=== PATIENT | female | born 1990 | race Caucasian/White ===

== ENCOUNTER 2016-09-03 15:09 | Emergency (ER) | payer OTHER ==
--- NOTE | 2016-09-03 15:27 | PDOC ---
Rapid Medical Evaluation Time Seen by Provider: 09/03/16 15:24 Medical Evaluation: Allergies Allergy/AdvReac Type Severity Reaction Status Date / Time No Known Allergies Allergy Verified 11/04/15 16:58 09/03/16 15:25 I have performed a brief in-person evaluation of this patient The patient presents with chief complaint of STD testing, boyfriend with positive Chlamydia, No symptoms Pertinent physical findings: normal I have ordered the following: STD panal The patient will proceed to [facility] for further evaluation.
[2016-09-03 15:29] VITALS: BP 135/75; PULSE 110; TEMP 97.9; BMI 28.1
[2016-09-03] MEDS ORDERED: AZITHROMYCIN 1 GM PACKET PO ONE (18:45)
[2016-09-03] MEDS ORDERED: AZITHROMYCIN 1 GM PACKET ONE (18:49)
[2016-09-03 20:10] LABS: HIV 1 AGp24 NEGATIVE
[2016-09-03 20:11] LABS: HIV 1 & 2 AB PRELIMINARY POSITIVE
--- NOTE | 2016-09-03 20:40 | PDOC ---
History of Present Illness - General Chief Complaint: Non EmpBld/Body Flud Exposure Stated Complaint: STD TESTING Time Seen by Provider: 09/03/16 15:24 History Source: Patient Exam Limitations: No Limitations - History of Present Illness Initial Comments: 09/03/16 20:35 CC told by boyfriend he had positive; pt wants testing Associated Symptoms: denies: denies symptoms, chest pain, cough, nausea/vomiting Aspirin Received prior to arrival: No: no aspirin today Past History - Past Medical History Allergies/Adverse Reactions: Allergies Allergy/AdvReac Type Severity Reaction Status Date / Time No Known Allergies Allergy Verified 09/03/16 15:26 Home Medications: Ambulatory Orders Fluoxetine HCl [Prozac] 10 mg PO DAILY 12/29/13 Oxycodone HCl/Acetaminophen [Percocet 5-325 mg Tablet -] 1 - 2 tab PO Q4H PRN # 20 tablet 12/30/13 - Immunization History Immunization Up to Date: Yes - Psycho/Social/Smoking Cessation Hx Anxiety: No Suicidal Ideation: No Smoking History: Never smoked Have you smoked in the past 12 months: No Information on smoking cessation initiated: No Hx Alcohol Use: No Drug/Substance Use Hx: No Substance Use Type: None Review of Systems - Review of Systems Constitutional: No: Symptoms Reported HEENTM: No: Symptoms Reported Respiratory: No: Symptoms reported : No: Burning, Dysuria, Discharge, Hematuria Musculoskeletal: No: Symptoms Reported *Physical Exam - Vital Signs Last Vital Signs Temp Pulse Resp BP Pulse Ox 97.9 F 110 H 18 135/75 96 09/03/16 15:26 09/03/16 15:26 09/03/16 15:26 09/03/16 15:26 09/03/16 15:26 - Physical Exam General Appearance: No: Appropriately Dressed HEENT: positive: TMs Normal, Pharynx Normal Respiratory/Chest: positive: Lungs Clear ED Treatment Course - Medications Given in the ED: ED Medications Discontinued Medications Generic Name Dose Route Start Last Admin Trade Name Freq PRN Reason Stop Dose Admin Azithromycin 1 gm 09/03/16 18:45 09/03/16 19:05 Zithromax - PO 09/03/16 18:46 1 gm ONCE ONE Administration Ceftriaxone Sodium 250 mg 09/03/16 18:44 09/03/16 19:04 Rocephin - IM 09/03/16 18:45 250 mg ONCE ONE Administration Medical Decision Making - Medical Decision Making 09/03/16 20:36 pt wo symptoms; std test done and rocephin and zithromax given; Labs states their was positive HIV how ever Dr Vega states lab thinks that there was a machine false positive because a know HIV negative pt also tested postive; and suggests that test be redone post controls fixed; pt told of ?? abn results and will return tomorrow for additional testing; can't wait now *DC/Admit/Observation/Transfer Diagnosis at time of Disposition: Exposure to sexually transmitted disease (STD) - Discharge Dispostion Disposition: HOME Condition at time of disposition: Stable Admit: No - Referrals - Patient Instructions Additional Instructions: PLEASe return in am for repeat testing; IT IS VERY IMPORTANT - Post Discharge Activity Work/School Note: Back to Work
[2016-09-03 21:06] LABS: HIV 1 AGp24 NEGATIVE
[2016-09-03 21:07] LABS: HIV 1 & 2 AB PRELIMINARY POSITIVE
--- NOTE | 2016-09-04 18:37 | PDOC ---
*Physical Exam - Vital Signs Last Vital Signs Temp Pulse Resp BP Pulse Ox 97.9 F 110 H 18 135/75 96 09/03/16 15:26 09/03/16 15:26 09/03/16 15:26 09/03/16 15:26 09/03/16 15:26 ED Treatment Course - Medications Given in the ED: ED Medications Discontinued Medications Generic Name Dose Route Start Last Admin Trade Name Jeff PRN Reason Stop Dose Admin Azithromycin 1 gm 09/03/16 18:45 09/03/16 19:05 Zithromax - PO 09/03/16 18:46 1 gm ONCE ONE Administration Ceftriaxone Sodium 250 mg 09/03/16 18:44 09/03/16 19:04 Rocephin - IM 09/03/16 18:45 250 mg ONCE ONE Administration Progress Note - Progress Note Progress Note: Pt as noted left before comfirmation of HIV postive results were established on 09/03 ; pt promised to return to ED today for reevaluation of results; pt has not return; mobile called several times no answer and no voice mail offered; Spoke with Dr Esquivel about case; reviewed with asst nurse embedded software manager [employer] about case also; will try to make contact with pt later tonight. *DC/Admit/Observation/Transfer Diagnosis at time of Disposition: STD exposure - Discharge Dispostion Disposition: HOME Condition at time of disposition: Stable - Referrals Referrals: Scottie Toscano MD [Primary Care Provider] - - Patient Instructions Additional Instructions: PLEASe return in am for repeat testing; IT IS VERY IMPORTANT - Post Discharge Activity Work/School Note: Back to Work
--- NOTE | 2016-09-08 15:08 | PDOC ---
Patient Follow-up (Call Back) - Post ED Follow - Up Condition at time of discharge: Stable Disposition at time of original discharge: HOME - Disposition Additional Instructions/Notes: Given preliminarily positive HIV testing, appointment was confirmed for the patient with the [facility] for 09/14/16 with Nica Dunn. Called cell number on file to inform the patient - again, no response and message was left to call back or return to the hospital.
== END 2016-09-03 21:10 | disposition home or self-care (01) ==
LOC: JERFT 15:09
DX: Z20.2 Contact with and (suspected) exposure to infections with a predominantly sexual mode of transmission (principal)
CPT/HCPCS: 36415; 87389; 87491; 87591; 99281-25

== ENCOUNTER → 2016-11-09 | Emergency (ER) | payer OTHER ==
[~2016-11-09] MED LIST: IBUPROFEN 600 MG TABLET (FP) PO ONE; SODIUM CHLORIDE 1,000 ML IV ONE
[2016-11-09 12:34] VITALS: PULSE 70; TEMP 98; BMI 28.1
--- NOTE | 2016-11-09 12:49 | PDOC ---
History of Present Illness - General History Source: Patient Exam Limitations: No Limitations - History of Present Illness Initial Comments: 11/09/16 14:14 The patient is a 26 year old female, 14 weeks , with a significant past medical history of HIV and GERD, who presents to the ER s/p syncope earlier today. Patient states she was walking around at [employer] today and had a sudden onset of sweats. As patient proceeded to unbutton her shirt, patient lost consciousness and fell sideways. Friend states the patients eyes rolled back and she started to convulse on the floor with blind stare. As per friend, the episode lasted for about 30 seconds. On interview, patient states she feels better. Patient says this is her first without any complications. Denies headache, head or neck trauma Denies nausea, vomiting Denies difficulty walking Denies shooting arm pain Denies anemia <Eunice Jordan - Last Filed: 11/09/16 15:32> <Tristin Castro - Last Filed: 11/09/16 16:16> - General Stated Complaint: Syncope/Near Syncope Time Seen by Provider: 11/09/16 12:47 Past History <Eunice Jrodan - Last Filed: 11/09/16 15:32> - Immunization History Immunization Up to Date: Yes - Psycho/Social/Smoking Cessation Hx Anxiety: No Suicidal Ideation: No Smoking History: Former smoker Have you smoked in the past 12 months: Yes Information on smoking cessation initiated: No Hx Alcohol Use: No Drug/Substance Use Hx: No Substance Use Type: None <Tristin Castro - Last Filed: 11/09/16 16:16> - Past Medical History Allergies/Adverse Reactions: Allergies Allergy/AdvReac Type Severity Reaction Status Date / Time No Known Allergies Allergy Verified 09/03/16 15:26 Home Medications: Ambulatory Orders Fluoxetine HCl [Prozac] 10 mg PO DAILY 12/29/13 Review of Systems - Review of Systems Comments:: 11/09/16 14:14 CONSTITUTIONAL: Absent: fever, no chills, no fatigue EYES: Absent: visual changes ENT: Absent: ear pain, no sore throat CARDIOVASCULAR: Absent: chest pain, no palpitations RESPIRATORY: Absent: cough, no SOB GI: Absent: abdominal pain, no nausea, no vomiting, no constipation, no diarrhea GENITOURINARY: Absent: dysuria, no frequency, no hematuria MUSCULOSKELETAL: Absent: back pain, no arthralgia, no myalgia SKIN: Absent: rash NEURO: Absent: headache <Eunice Jordan - Last Filed: 11/09/16 15:32> - Review of Systems Constitutional: No: Chills, Fever HEENTM: No: Nose Congestion, Throat Swelling Respiratory: No: Cough, Shortness of Breath Cardiac (ROS): Yes: Syncope. No: Chest Pain, Edema, Palpitations ABD/GI: No: Diarrhea, Vomiting : No: Dysuria, Frequency All Other Systems: Reviewed and Negative <Tristin Castro - Last Filed: 11/09/16 16:16> *Physical Exam - Vital Signs Last Vital Signs Temp Pulse Resp BP Pulse Ox 98.0 F 70 18 112/70 98 11/09/16 12:30 11/09/16 12:30 11/09/16 12:30 11/09/16 13:21 11/09/16 12:30 - Physical Exam Comments: 11/09/16 14:15 General: Patient is alert and in no acute distress. Speech is clear and appropriate. Head: Atraumatic and nontender. HEENT: Pupils are equal round and reactive to light, extraocular movements are intact. The tympanic membranes are clear, no hemotympanum. No facial deformity/ tenderness, no septal hematoma. The oropharynx is clear. Neck: The trachea is midline, there is no stridor. There is no midline cervical spine tenderness, full range of motion of neck. Chest: Nontender, no ecchymosis or abrasions. Heart: S1-S2, regular rate and rhythm. No murmurs. Lungs: Clear to auscultation bilaterally. Symmetric chest rise. Abdomen: Unable to palpate uterus. Soft/nontender/nondistended. Bowel sounds are normal. There is no abdominal or flank ecchymosis. Back/Pelvis: There is no midline spine tenderness or step-off. Pelvis is stable and nontender. Extremities: Superficial ecchymosis over right knee. Extension/flexion good. There is no extremity deformity or joint swelling. No focal bony tenderness throughout. 2+ distal pulses throughout. Neuro: Alert and oriented x3. Cranial nerves II through XII are intact. 5 out of 5 motor strength x4 extremities. [id number] is intact. No pronator drift. Gait is stable. Skin: No abrasions/hematomas/lacerations. Psych: Affect is appropriate. <Eunice Jordan - Last Filed: 11/09/16 15:32> - Vital Signs Last Vital Signs Temp Pulse Resp BP Pulse Ox 98.0 F 70 18 110/70 98 11/09/16 12:30 11/09/16 12:30 11/09/16 12:30 11/09/16 12:30 11/09/16 12:30 <Tristin Castro - Last Filed: 11/09/16 16:16> Heart Score/ECG Review #1 ECG reviewed & interpreted by me at: 13:00 General ECG Interpretation: Sinus Rhythm, Normal Rate (92), Normal Intervals ( qtc 440, qrs 82), No acute ischemic changes <Tristin Castro - Last Filed: 11/09/16 16:16> ED Treatment Course - LABORATORY CBC & Chemistry Diagram: 11/09/16 13:15 11/09/16 13:15 - ADDITIONAL ORDERS Additional order review: Laboratory Results 11/09/16 13:15 Sodium 139 Potassium 4.2 Chloride 105 Carbon Dioxide 23 Anion Gap 11 BUN 6 L D Creatinine 0.5 L D Creat Clearance w eGFR > 60 Random Glucose 80 Calcium 8.1 L Total Bilirubin 0.3 D AST 16 ALT 17 D Alkaline Phosphatase 43 L D Total Protein 6.4 Albumin 3.8 11/09/16 13:15 RBC 4.12 MCV 87.1 MCHC 34.3 RDW 13.4 MPV 8.2 Neutrophils % 77.8 Lymphocytes % 17.6 Monocytes % 4.1 Eosinophils % 0.3 Basophils % 0.2 - RADIOLOGY Radiograph Interpretation: 11/09/16 15:32 US impression reported by Dr. Cory Garrido: Single live intrauterine gestation of 14 weeks 1 day gestational age. A heart rate of 136 BPM was calculated. The placenta is anterior in location. An adequate amount of amniotic fluid is identified. The fetus is in a vertex presentation at the present time. - Medications Given in the ED: ED Medications Discontinued Medications Generic Name Dose Route Start Last Admin Trade Name Freq PRN Reason Stop Dose Admin Sodium Chloride 1,000 mls @ 1,000 mls/hr 11/09/16 12:57 11/09/16 13:21 Normal Saline - IV 11/09/16 13:56 1,000 mls/hr ONCE ONE Administration <Eunice Jordan - Last Filed: 11/09/16 15:32> - LABORATORY CBC & Chemistry Diagram: 11/09/16 13:15 11/09/16 13:15 <Tristin Castro - Last Filed: 11/09/16 16:16> Medical Decision Making - Medical Decision Making 11/09/16 13:04 A portion of this note was documented by scribe services under my direction. I have reviewed the details of the note, within reason, and agree with the documentation with the following case summary and management plan written by me. 26-year-old female with well-controlled HIV, almost 14 weeks' gestation otherwise uncomplicated presents with syncopal episode. Patient was in her usual state of normal health, skipped breakfast this morning and while shopping developed lightheadedness and warmth, lost consciousness and fell to the ground before she could find a seat. Per friend/bystander, patient did strike her head and side, returned to baseline within about 30 seconds. Some tremor but no convulsions. pt without complaints of headache or vision change or speech change, no chest pain or vaginal bleeding or pelvic cramping. No recent dehydration or infectious complaints. Vital signs normal, blood pressure 110/70 Exam is atraumatic except for superficial skin bruise to the right shoulder and right knee Head is atraumatic and neurologically intact abd benign, uterus not palpable 26-year-old female with well-controlled HIV, approaching second trimester of otherwise uncomplicated presents with syncopal episode that seems most consistent with orthostatic episode, positive fall/injury but exam is within normal limits. Can avoid any x-ray and CT imaging given low suspicion for TBI or fracture Will check pelvic ultrasound to confirm status of Check basic labs including CBC IV fluid hydration, EKG Reassess and dispo accordingly 11/09/16 16:12 Labs wnl. BP remained wnl. Looks and feels well, sono showed IUP with normal heart rate and placenta. No cramping/bleeding, no headache/vomiting. Tolerated PO, ambulating steadily, has no new complaints of pain/swelling or motor/sensory deficit. Family at bedside, pt feels comfortable going home. Understands return criteria. Concussion precautions discussed. <Tristin Castro - Last Filed: 11/09/16 16:16> *DC/Admit/Observation/Transfer - Attestations Scribe Attestion: 11/09/16 14:16 Documentation prepared by Eunice Jordan, acting as medical laboratory scientist for Tristin Castro MD. <Eunice Jordan - Last Filed: 11/09/16 15:32> <Tristin Castro - Last Filed: 11/09/16 16:16> Diagnosis at time of Disposition: Syncope and collapse, HIV (human immunodeficiency virus infection) Qualifiers: Weeks of gestation: 13 weeks Qualified Code(s): Z3A.13 - 13 weeks gestation of - Discharge Dispostion Disposition: HOME Condition at time of disposition: Improved - Referrals Referrals: Scottie Toscano MD [Primary Care Provider] - - Patient Instructions Printed Discharge Instructions: DI for Syncope in Adults (Fainting) Additional Instructions: Activity as tolerated. Stay hydrated. Tylenol 1000 mg every 8 hours as needed for pain. Blood tests and an ultrasound showed no acute abnormalities today. The passing out was likely due to an orthostatic or vasovagal episode, which can be more common in . Continue your medications as previously prescribed by your physician. You should follow up with your primary doctor and CLINICAL DATA ANALYST as soon as possible regarding today's emergency department visit. Return to the emergency department for any new or concerning symptoms, particularly severe headache or confusion or vomiting (these can be symptoms of concussion), severe pain or swelling, cramping or bleeding.
[2016-11-09 13:22] VITALS: BP 112/70
[2016-11-09 13:30] LABS: BASOPHIL 0.2 % (0-2.0); EOSINOPHIL 0.3 % (0-4.5); MCH 29.8 pg (25.7-33.7); MCHC 34.3 g/dl (32.0-36.0); MEAN CELL VOLUME 87.1 fl (80-96); MEAN PLT VOLUME 8.2 fl (7.5-11.1); NEUTROPHILS 77.8 % (42.8-82.8); PLATELET COUNT 168 K/MM3 (134-434); RDW 13.4 % (11.6-15.6); WHITE BLOOD COUNT 11.5 K/mm3 (4.0-10.0)
[2016-11-09 13:43] LABS: ALBUMIN 3.8 g/dl (3.4-5.0); ANION GAP 11 (8-16); BILIRUBIN,TOTAL 0.3 mg/dL (0.2-1.0); CALCIUM 8.1 mg/dL (8.5-10.1); CO2 23 mmol/L (21-32); CREATININE 0.5 mg/dL (0.55-1.02); GLUCOSE,RANDOM 80 mg/dL (74-106); SGOT/AST 16 U/L (15-37); SGPT/ALT 17 U/L (12-78); TOT PROT 6.4 g/dl (6.4-8.2)
[2016-11-09 13:44] LABS: ALK PHOS 43 U/L (45-117)
--- NOTE | 2016-11-10 11:12 | EKG ---
Test Reason : Blood Pressure : / mmHG Vent. Rate : 092 BPM Atrial Rate : 092 BPM P-R Int : 166 ms QRS Dur : 082 ms QT Int : 356 ms P-R-T Axes : 049 024 029 degrees QTc Int : 440 ms NORMAL SINUS RHYTHM NORMAL ECG WHEN COMPARED WITH ECG OF 04-NOV-2015 19:55, NO SIGNIFICANT CHANGE WAS FOUND Confirmed by BARBARA PULIDO MD ([id number]) on 11/10/2016 11:12:17 AM Referred By: Confirmed By:BARBARA PULIDO MD
== END | disposition home or self-care (01) ==
LOC: JER 12:20
PROC: 3E0337Z Introduction of Electrolytic and Water Balance Substance into Peripheral Vein, Percutaneous Approach (ICD-10-PCS; principal; 2016-11-09)
DX: O99.89 Other specified diseases and conditions complicating pregnancy, childbirth and the puerperium (principal); R55 Syncope and collapse; O98.711 Human immunodeficiency virus [HIV] disease complicating pregnancy, first trimester; Z3A.13 13 weeks gestation of pregnancy; Z21 Asymptomatic human immunodeficiency virus [HIV] infection status
CPT/HCPCS: 36415; 76801-TC; 80053; 85025; 93005; 93010; 96360; 99282-25

== ENCOUNTER 2016-11-15 20:59 | Emergency (ER) | payer OTHER ==
[2016-11-15 21:15] VITALS: BP 153/79; PULSE 88; TEMP 97.9; BMI 28.1
--- NOTE | 2016-11-15 21:50 | PDOC ---
History of Present Illness - General Chief Complaint: Sore Throat Stated Complaint: 15 WKS PRG/ COLD SYMP Time Seen by Provider: 11/15/16 21:21 History Source: Patient Exam Limitations: No Limitations - History of Present Illness Initial Comments: 11/15/16 21:43 Agent is 15 weeks , and suffering from a URI and mild asthma exacerbation. Patient has ALLERGIES to dust mite and was recently diagnosed with asthma, has not used any of her medications for resolve of this symptom. Denies fever, states has a moist cough with clear phlegm. No problems with 11/15/16 21:45 11/16/16 12:41 Timing/Duration: reports: just prior to arrival Severity: reports: mild, moderate Modifying Factors: improves with: albuterol inhaler Associated Symptoms: reports: nasal congestion, nasal drainage, shortness of breath. denies: fever/chills, sore throat Past History - Travel Traveled outside of the country in the last 30 days: No Close contact w/someone who was outside of country & ill: No - Past Medical History Allergies/Adverse Reactions: Allergies Allergy/AdvReac Type Severity Reaction Status Date / Time No Known Allergies Allergy Verified 11/15/16 21:15 Home Medications: Ambulatory Orders Prednisone [Deltasone -] 20 mg PO BID #8 tablet 11/15/16 HIV: Yes - Immunization History Immunization Up to Date: Yes - Psycho/Social/Smoking Cessation Hx Anxiety: No Suicidal Ideation: No Smoking History: Never smoked Have you smoked in the past 12 months: No Information on smoking cessation initiated: No Hx Alcohol Use: No Drug/Substance Use Hx: No Substance Use Type: None Respiratory Specific PMHX - Complaint Specific PMHX Bronchitis: No Pneumonia: No Review of Systems - Review of Systems Able to Perform ROS?: Yes Is the patient limited Filipino proficient: Yes Constitutional: Yes: Symptoms Reported, See HPI, Malaise HEENTM: No: Symptoms Reported Respiratory: Yes: Symptoms reported, See HPI, Cough, Orthopnea, Wheezing ABD/GI: No: Symptoms Reported : No: Symptoms Reported Musculoskeletal: No: Symptoms Reported Integumentary: Yes: Symptoms Reported, See HPI *Physical Exam - Vital Signs Last Vital Signs Temp Pulse Resp BP Pulse Ox 97.9 F 88 18 153/79 98 11/15/16 21:11 11/15/16 21:11 11/15/16 21:11 11/15/16 21:11 11/15/16 21:11 - Physical Exam General Appearance: Yes: Nourished, Appropriately Dressed, Apparent Distress, Mild Distress HEENT: positive: Normal ENT Inspection, TMs Normal (congested but landmarks easily visualized), Pharynx Normal (with posterioor sinus drainage ) Neck: positive: Supple. negative: Tender, Lymphadenopathy (R), Lymphadenopathy (L) Respiratory/Chest: positive: Wheezing (course inspiratory and expiratory wheezing primarily upper airways), Hyperresonant. negative: Lungs Clear, Normal Breath Sounds, Accessory Muscle Use, Labored Respiration Musculoskeletal: negative: Vertebral Tenderness Extremity: positive: Normal Capillary Refill, Normal Inspection Integumentary: positive: Normal Color, Dry, Warm, Pale Neurologic: positive: freight shipping agent II-XII NML intact, Fully Oriented, Alert, Normal Mood/ Affect, Normal Response, Motor Strength 5/5 Progress Note - Progress Note Progress Note: Asthma exacerbation/ALLERGIC rhinitis. Will treat with albuterol and saline dilution and reevaluate. Medical Decision Making - Medical Decision Making 11/15/16 22:14 MUCH IMPROVED after 2nd Albuterol/ Prednisone daily- 40mg tabs for next 4 days and followup with [facility] 'reviewed prednisone use with Dr. Gabriel who agrees is okay for use with an asthma exacerbation and 11/15/16 22:16 11/16/16 12:42 *DC/Admit/Observation/Transfer Diagnosis at time of Disposition: Allergic rhinitis Qualifiers: Allergic rhinitis trigger: unspecified Allergic rhinitis seasonality: non- seasonal Qualified Code(s): J30.89 - Other allergic rhinitis - Discharge Dispostion Disposition: HOME Condition at time of disposition: Stable Admit: No - Prescriptions Prescriptions: Prednisone [Deltasone -] 20 mg PO BID #8 tablet - Referrals Referrals: Scottie Toscano MD [Primary Care Provider] - - Patient Instructions Printed Discharge Instructions: DI for Allergic Rhinitis Additional Instructions: Rest, drink lots of fluids: Teas, water, soups, Saltwater gargles Steamy showers/seem to face break up mucus Avoid contact with others until fevers and cough resolved Lots of handwashing and good hygiene Continue [id number] medications for symptomatic relief Tylenol for fever and pain May use Benadryl for antihistamine Into new albuterol nebulizers diluted with saline 3-4 times a day until lungs clear Prednisone 40 mg daily for the next 4 days total Followup with private physician in one to 2 days Return to emergency department for worsened symptoms, fevers, dehydration - Post Discharge Activity Work/School Note: Back to Work
[2016-11-15] MEDS ORDERED: ALBUTEROL SO4 0.083% IH SOL 2.5 MG/3 ML VIAL.NEB. NEB ONE ×2 (21:54→21:59)
[2016-11-15] MEDS ORDERED: predniSONE 20 MG TABLET (UD) PO ONE (21:54)
[2016-11-15] MEDS ORDERED: predniSONE 20 MG TABLET (UD) ONE (21:55)
== END 2016-11-15 22:21 | disposition home or self-care (01) ==
LOC: JERFT 20:59
PROC: 3E0F7GC Introduction of Other Therapeutic Substance into Respiratory Tract, Via Natural or Artificial Opening (ICD-10-PCS; principal; 2016-11-15)
DX: J45.901 Unspecified asthma with (acute) exacerbation (principal); J30.89 Other allergic rhinitis; O98.712 Human immunodeficiency virus [HIV] disease complicating pregnancy, second trimester; Z3A.15 15 weeks gestation of pregnancy
CPT/HCPCS: 94640; 99281-25

== ENCOUNTER 2017-09-06 18:12 | Emergency (ER) | payer OTHER ==
[2017-09-06 18:45] VITALS: BP 132/70; PULSE 102; TEMP 98.7; BMI 33.3
--- NOTE | 2017-09-06 18:46 | PDOC ---
Rapid Medical Evaluation Time Seen by Provider: 09/06/17 18:44 Medical Evaluation: Allergies Allergy/AdvReac Type Severity Reaction Status Date / Time No Known Allergies Allergy Verified 09/06/17 18:41 03 18:44 I have performed a brief in-person person evaluation of the patient. The patient presents with a chief complaint of sorethroat and coughing. Denies fever, chills or headache Pertinent physical exam findings: NAD HEENT: non enlarged tonsil, no exudate, no erythema unlabored breathing I have ordered the following: rapid strep, urine hcg The patient will proceed to the ED for further evaluation.
--- NOTE | 2017-09-06 18:50 | PDOC ---
History of Present Illness - General Chief Complaint: Cold Symptoms Stated Complaint: PAIN Time Seen by Provider: 09/06/17 18:44 History Source: Patient Exam Limitations: No Limitations - History of Present Illness Initial Comments: CHIEF COMPLAINT: 26 y/o afebrile female with no significant PMH c/o sore throat and runny nose x 3 days. HISTORY OF PRESENT ILLNESS: The patient denies f/c, n/v/d, difficulty swallowing, abd pain and all other symptoms. She hasn't taken anything for the pain. Vital signs on arrival are notable for pulse of 102. REVIEW OF SYSTEMS: GENERAL/CONSTITUTIONAL: No fever/chills. No weakness. No weight change. HEAD, EYES, EARS, NOSE AND THROAT: +sore throat. +runny nose. No change in vision. No ear pain or discharge. CARDIOVASCULAR: No chest pain or shortness of breath. RESPIRATORY: No cough, wheezing, or hemoptysis. GASTROINTESTINAL: No abd pain, nausea, vomiting, diarrhea. GENITOURINARY: No dysuria, frequency, or change in urination. MUSCULOSKELETAL: No joint or muscle swelling or pain. No neck or back pain. SKIN: No rash or easy bruising. NEUROLOGIC: No headache, vertigo, loss of consciousness, or loss of sensation. PHYSICAL EXAM: GENERAL: The patient is awake, alert, and fully oriented, in no acute distress. HEAD: Normal with no signs of trauma. ENT: Pupils equal, round and reactive to light, extraocular movements intact, sclera anicteric, conjunctiva clear. No tonsilar erythema, edema or exudate. No tender cervical lymphadenopathy. No soft/hard palate deformities. Uvula midline. LUNGS: Clear to auscultation bilaterally. Normal excursion. No respiratory distress or use of accessory muscles. CV: RRR, S1/S2, no MRG. Cap refill < 2 sec. ABDOMEN: Soft, non-distended, non-tender even to deep palpation, no hepatomegaly or splenomegaly, no masses. EXTREMITIES: Normal range of motion, no edema. NEUROLOGICAL: Normal speech, normal gait. CN II-XII grossly intact. SKIN: Warm, dry, normal turgor, no rashes or lesions noted. Past History - Past Medical History Allergies/Adverse Reactions: Allergies Allergy/AdvReac Type Severity Reaction Status Date / Time No Known Allergies Allergy Verified 09/06/17 18:41 Home Medications: Ambulatory Orders Emtricitabine/Tenofov Alafenam [Descovy 200-25 mg Tablet] 1 each PO ASDIR Iron/Calcium/E/Folic Acid/Mvit [Vitafol Caplet] 1 each PO ASDIR 04/04/17 Raltegravir [Isentress -] 400 mg PO ASDIR 04/04/17 COPD: No - Immunization History Immunization Up to Date: Yes - Suicide/Smoking/Psychosocial Hx Smoking History: Current some day smoker Have you smoked in the past 12 months: Yes If you are a former smoker, when did you quit?: 1 year ago Information on smoking cessation initiated: No Hx Alcohol Use: No Drug/Substance Use Hx: No Substance Use Type: None *Physical Exam - Vital Signs Last Vital Signs Temp Pulse Resp BP Pulse Ox 98.7 F 102 H 19 132/70 97 09/06/17 18:41 09/06/17 18:41 09/06/17 18:41 09/06/17 18:41 09/06/17 18:41 Medical Decision Making - Medical Decision Making A/P: 26 y/o female with sore throat. Will check rapid strep and hcg. Rapid strep - negative hcg - negative Will give motrin and supportive care instructions. Pt instructed to f/u with her doctor and return to the ER with any worsening or concerning symptoms. The patient verbalizes understanding of all instructions, has no further questions and is awaiting discharge. *DC/Admit/Observation/Transfer Diagnosis at time of Disposition: Sore throat - Discharge Dispostion Disposition: HOME Condition at time of disposition: Good - Referrals Referrals: Scottie Toscano MD [Primary Care Provider] - - Patient Instructions Printed Discharge Instructions: Sore Throat Additional Instructions: Discharge Instructions: -Take Motrin for pain every 6 hours with food -Gargle with warm salt water to help with sore throat -Follow up with your doctor within 1 week -Return to the ER with any worsening or concerning symptoms - Post Discharge Activity
== END 2017-09-06 21:28 | disposition home or self-care (01) ==
LOC: JERFT 18:12
DX: J02.9 Acute pharyngitis, unspecified (principal)
CPT/HCPCS: 84703; 87070; 87430; 99281-25

== ENCOUNTER 2018-01-17 00:52 | Emergency (ER) | payer OTHER ==
[2018-01-17 01:22] VITALS: BP 138/72; PULSE 90; TEMP 98.1; BMI 26.9
--- NOTE | 2018-01-17 01:26 | PDOC ---
History of Present Illness <BeltreKarla - Last Filed: 01/17/18 03:17> - General History Source: Patient, Old Records Exam Limitations: No Limitations - History of Present Illness Travel History: No Initial Comments: 01/17/18 01:31 This is a 27-year-old woman past medical history of HIV on HAART (VL- undetectable, does not remember CD4) presents emergency Department with 1 day of urinary frequency and dysuria. Patient denies flank pain, fevers, chills, chest pain, shortness of breath, nausea, vomiting, hematuria, vaginal bleeding, vaginal discharge or rectal bleeding. ID- Alisia <RayRoger - Last Filed: 01/17/18 03:27> - General Chief Complaint: Urinary Problem Stated Complaint: UTI Time Seen by Provider: 01/17/18 01:13 Past History <PattKarla - Last Filed: 01/17/18 03:17> - Past Medical History COPD: No GI Disorders: Yes Liver Disease: Yes ("FATTY") - Immunization History Immunization Up to Date: Yes - Suicide/Smoking/Psychosocial Hx Smoking History: Never smoked Have you smoked in the past 12 months: No If you are a former smoker, when did you quit?: 1 year ago Information on smoking cessation initiated: No Hx Alcohol Use: No Drug/Substance Use Hx: No Substance Use Type: None <RayRoger - Last Filed: 01/17/18 03:27> - Past Medical History Allergies/Adverse Reactions: Allergies Allergy/AdvReac Type Severity Reaction Status Date / Time No Known Allergies Allergy Verified 01/17/18 01:09 Home Medications: Ambulatory Orders Emtricitabine/Tenofov Alafenam [Descovy 200-25 mg Tablet (Nf)] 1 each PO ASDIR 04/04/17 Iron/Calcium/E/Folic Acid/Mvit [Vitafol Caplet] 1 each PO ASDIR 04/04/17 Raltegravir [Isentress] 400 mg PO ASDIR 04/04/17 Lidocaine 5% Patch [Lidoderm Patch -] 1 patch TP DAILY #7 patch 12/31/17 Cephalexin Monohydrate [Keflex -] 500 mg PO BID #14 capsule 01/17/18 Review of Systems - Review of Systems Able to Perform ROS?: Yes Is the patient limited French proficient: No Constitutional: No: Symptoms Reported HEENTM: No: Symptoms Reported Respiratory: No: Symptoms reported Cardiac (ROS): No: Symptoms Reported ABD/GI: No: Symptoms Reported : Yes: See HPI Musculoskeletal: No: Symptoms Reported Integumentary: No: Symptoms Reported Neurological: No: Symptoms reported Endocrine: No: Symptoms Reported Hematologic/Lymphatic: No: Symptoms Reported <Roger Bell - Last Filed: 01/17/18 03:27> *Physical Exam - Vital Signs Last Vital Signs Temp Pulse Resp BP Pulse Ox 98.1 F 90 18 138/72 99 01/17/18 01:07 01/17/18 01:07 01/17/18 01:07 01/17/18 01:07 01/17/18 01:07 <Karla Beltre - Last Filed: 01/17/18 03:17> - Vital Signs Last Vital Signs Temp Pulse Resp BP Pulse Ox 98.1 F 90 18 138/72 99 01/17/18 01:07 01/17/18 01:07 01/17/18 01:07 01/17/18 01:07 01/17/18 01:07 - Physical Exam General Appearance: Yes: Appropriately Dressed. No: Apparent Distress HEENT: positive: Normal ENT Inspection Neck: positive: Trachea midline, Supple Respiratory/Chest: positive: Lungs Clear, Normal Breath Sounds. negative: Respiratory Distress, Accessory Muscle Use Cardiovascular: positive: Regular Rhythm, Regular Rate. negative: Murmur Gastrointestinal/Abdominal: positive: Normal Bowel Sounds, Tender (suprapubic), Soft Musculoskeletal: positive: Normal Inspection. negative: CVA Tenderness Extremity: positive: Normal Inspection Integumentary: positive: Normal Color, Dry, Warm Neurologic: positive: Alert, Normal Response <Roger Bell - Last Filed: 01/17/18 03:27> ED Treatment Course - LABORATORY CBC & Chemistry Diagram: 01/17/18 01:38 01/17/18 01:38 - ADDITIONAL ORDERS Additional order review: Laboratory Results 01/17/18 01/17/18 02:50 01:38 Sodium 138 Potassium 3.5 Chloride 105 Carbon Dioxide 25 Anion Gap 8 BUN 10 Creatinine 0.7 Creat Clearance w eGFR > 60 Random Glucose 89 Calcium 8.5 Urine Color Straw Urine Appearance Slcloudy Urine pH 6.0 Ur Specific [place] 1.005 Urine Protein 2+ H Urine Glucose (UA) Negative Urine Ketones Negative Urine Blood 2+ H Urine Nitrite Negative Urine Bilirubin Negative Urine Urobilinogen Negative Ur Leukocyte Esterase 2+ H Urine HCG, Qual Negative 01/17/18 01:38 RBC 4.41 MCV 78.7 L MCHC 32.6 RDW 15.2 D MPV 8.7 Neutrophils % 55.4 D Lymphocytes % 36.7 D Monocytes % 5.9 Eosinophils % 1.5 D Basophils % 0.5 <Karla Beltre - Last Filed: 01/17/18 03:17> - LABORATORY CBC & Chemistry Diagram: 01/17/18 01:38 01/17/18 01:38 <Roger Bell - Last Filed: 01/17/18 03:27> Medical Decision Making - Medical Decision Making 01/17/18 01:35 A/P: 27-year-old woman history of HIV on HAART with 1 day of urinary frequency and dysuria Normoactive bowel sounds Suprapubic tenderness No CVA tenderness VS unremarkable Exam is consistent with cystitis given patient's retroviral status I will collect blood work and urine rule out systemic infection. 01/17/18 03:22 Laboratory Tests 01/17/18 01/17/18 01/17/18 01:38 01:38 02:50 WBC 8.8 Hgb 11.3 Hct 34.7 Plt Count 226 D BUN 10 Creatinine 0.7 Urine Color Straw Urine Appearance Slcloudy Urine pH 6.0 Ur Specific [place] 1.005 Urine Protein 2+ H Urine Glucose (UA) Negative Urine Ketones Negative Urine Blood 2+ H Urine Nitrite Negative Urine Bilirubin Negative Urine Urobilinogen Negative Ur Leukocyte Esterase 2+ H Given laboratory testing I'll give the patient 1 dose of ceftriaxone while here in the emergency department and prescription for Keflex as outpatient. We'll give the patient referral for urology and patient was instructed to follow up with her infectious disease doctor regarding the urinary tract infection. Patient verbalizes understanding of discharge instructions <Roger Bell - Last Filed: 01/17/18 03:27> *DC/Admit/Observation/Transfer <Karla Beltre - Last Filed: 01/17/18 03:17> - Discharge Dispostion Decision to Admit order: No <Roger Bell - Last Filed: 01/17/18 03:27> Diagnosis at time of Disposition: Cystitis - Discharge Dispostion Disposition: HOME Condition at time of disposition: Fair - Prescriptions Prescriptions: Cephalexin Monohydrate [Keflex -] 500 mg PO BID #14 capsule - Referrals Referrals: Scottie Toscano MD [Primary Care Provider] - Mendel Jane MD [Staff Physician] - - Patient Instructions Additional Instructions: Rest, drink lots of fluids: Teas, water, soups Avoid contact with others until fevers and symptoms resolved Lots of handwashing and good hygiene Continue [id number] medications for symptomatic relief Tylenol or Motrin for fever and pain Continue all of antibiotics until completed Followup with private physician in one week for repeat urinalysis/reevaluation You've be given a referral for urologist. Make an appointment for reevaluation of urinary tract infections. Make an appointment with her infectious disease doctor for continued evaluation. Return to emergency department for worsened symptoms, fevers, dehydration - Post Discharge Activity
[2018-01-17 01:48] LABS: BASO % 0.5 % (0-2.0); EOS % 1.5 % (0-4.5); HEMATOCRIT 34.7 % (32.4-45.2); HEMOGLOBIN 11.3 GM/dL (10.7-15.3); LYMPH % 36.7 % (8-40); MCH 25.7 pg (25.7-33.7); MCHC 32.6 g/dl (32.0-36.0); MEAN CELL VOLUME 78.7 fl (80-96); MEAN PLT VOLUME 8.7 fl (7.5-11.1); MONO % 5.9 % (3.8-10.2); NEUT % 55.4 % (42.8-82.8); PLATELET COUNT 226 K/MM3 (134-434); RBC 4.41 M/mm3 (3.60-5.2); RDW 15.2 % (11.6-15.6); WHITE BLOOD COUNT 8.8 K/mm3 (4.0-10.0)
[2018-01-17 02:21] LABS: ANION GAP 8 (8-16); BLOOD UREA NITROGEN 10 mg/dL (7-18); CALCIUM 8.5 mg/dL (8.5-10.1); CHLORIDE 105 mmol/L (98-107); CO2 25 mmol/L (21-32); CREATININE 0.7 mg/dL (0.55-1.02); GLUCOSE,RANDOM 89 mg/dL (74-106); POTASSIUM 3.5 mmol/L (3.5-5.1); SODIUM 138 mmol/L (136-145)
[2018-01-17 03:02] LABS: URINE APPEARANCE SLCLOUDY; URINE BILIRUBIN NEGATIVE (<2.0 mg/dL); URINE COLOR STRAW; URINE GLUCOSE (UA) NEGATIVE (NEGATIVE); URINE KETONE NEGATIVE (NEGATIVE); URINE NITRITE NEGATIVE (NEGATIVE); URINE UROBILINOGEN NEGATIVE mg/dL (0.2-1.0)
[2018-01-17 03:06] LABS: URINE LEUK ESTERASE 2+ (NEGATIVE); URINE PROTEIN 2+ (NEGATIVE)
[2018-01-17 03:08] LABS: HCG,QUALITATIVE URINE NEGATIVE
[2018-01-17] MEDS ORDERED: CEFTRIAXONE 1,000 MG in DEXTROSE 5%-WATER - 50 ML IVPB ONE (03:16)
[2018-01-17] MEDS ORDERED: CEFTRIAXONE 1 GM/50 ML BAG ONE (03:22)
[2018-01-17 03:26] LABS: EPI CELLS FEW /HPF (FEW); URINE BACTERIA MODERATE /hpf (NONE SEEN); URINE MUCUS RARE
== END 2018-01-17 04:01 | disposition home or self-care (01) ==
LOC: JER 00:52
DX: N30.00 Acute cystitis without hematuria (principal); K76.0 Fatty (change of) liver, not elsewhere classified; Z21 Asymptomatic human immunodeficiency virus [HIV] infection status
CPT/HCPCS: 36415; 80048; 81003; 81015; 84703; 85025; 87086; 96365; 99281-25

== ENCOUNTER 2018-03-04 20:32 | Emergency (ER) | payer OTHER ==
[2018-03-04 20:54] VITALS: BP 131/102; PULSE 74; TEMP 99.1; BMI 31.4
--- NOTE | 2018-03-04 21:01 | PDOC ---
Rapid Medical Evaluation Chief Complaint: Lightheaded Time Seen by Provider: 03/04/18 20:50 Medical Evaluation: Allergies Allergy/AdvReac Type Severity Reaction Status Date / Time No Known Allergies Allergy Verified 01/17/18 01:09 03/04/18 20:52 I have performed a brief in-person evaluation of this patient. The patient presents with a chief complaint of: Right side discomfort with excessive salivation since 3pm, denies dysphagia Pertinent physical exam findings:+ elevated BP with R sided facial droop, speech nl, no extremity weakness I have ordered the following:labs, head CT The patient will proceed to the ED for further evaluation. 03/04/18 21:01 Discharge Disposition - Referrals Referrals: Scottie Toscano MD [Primary Care Provider] - - Patient Instructions - Post Discharge Activity
--- NOTE | 2018-03-04 21:02 | PDOC ---
Attending Attestation - HPI HPI: 03/04/18 22:45 The patient is a 27 year old female, with a significant past medical history of HIV on HAART, fatty liver, RA, who presents to the emergency department with, dizziness and lightheadedness. As per patient, this afternoon she was at home when she began to feel lightheaded and dizzy. She attempted to take a nap, yet her symptoms persisted after waking up. She describes her dizziness as the room spinning when she sits up from lying down. She denies recent fevers or chills. She denies recent nausea, vomit, diarrhea or constipation. She denies recent dysuria, frequency, urgency or hematuria. She denies recent chest pain or shortness of breath. Allergies: NKA Past surgical history: deviated septum repair. Social history: Smoker (2 cigarettes per day). Occasional marijuana usage. Denies EtOH. - Physicial Exam PE: 03/04/18 22:50 GENERAL: Awake, alert, and fully oriented, in no acute distress HEAD: No signs of trauma EYES: PERRLA, EOMI, sclera anicteric, conjunctiva clear ENT: Auricles normal inspection, hearing grossly normal, nares patent, oropharynx clear without exudates. Moist mucosa NECK: Normal ROM, supple, no lymphadenopathy, JVD, or masses LUNGS: Breath sounds equal, clear to auscultation bilaterally. No wheezes, and no crackles HEART: Regular rate and rhythm, normal S1 and S2, no murmurs, rubs or gallops ABDOMEN: Soft, nontender, normoactive bowel sounds. No guarding, no rebound. No masses EXTREMITIES: Normal range of motion, no edema. No clubbing or cyanosis. No cords, erythema, or tenderness NEUROLOGICAL: Alert, awake, appropriate. Cranial nerves 2-12 intact. No deficits to light touch and temperature in face, upper extremities and lower extremities. No motor deficits in the in face, upper extremities and lower extremities. No pronator drift. Normoreflexic in the upper and lower extremities. Normal speech. Toes are down-going bilaterally. No abnormal nystagmus. SKIN: Warm, Dry, normal turgor, no rashes or lesions noted. <Lv Quintanilla - Last Filed: 03/04/18 22:50> - Resident Resident Name: Luz Elena,Elle - ED Attending Attestation I have performed the following: I have examined & evaluated the patient, The case was reviewed & discussed with the resident, I agree w/resident's findings & plan - Medical Decision Making 03/04/18 23:20 Pt comes with dizziness and vertigo. BP was elevated in triage and pt was thought to have asymetric face, so she was rushed to Head CT scan. On exam BP is normal, head CT normal. neuro exam normal. Pt is compliant with her HIV treatment and she has undetectable viral load. Pt has normal labs and she feels better in the ER without treatment. I will give her a dose of meclizine as she has slight room spinning sensation whever she sits up in bed. Pt will go home with meclizine QID PRN dizziness. Neuro referral given. <Karla Beltre - Last Filed: 03/04/18 23:23> Heart Score/ECG Review #1 EKG performed at: 04 Mar 2018 at 22:04:53 Vent Rate 74 bpm SD interval 184 ms QRS duration 84 ms QT/QTc 404/448 ms P-R-T axes 47 26 24 Normal sinus rhythm Normal ECG <Lv Quintanilla - Last Filed: 03/04/18 22:50> Attestations - Attestations 03/04/18 22:14 Documentation prepared by Lv Quintanilla, acting as medical art therapist for Karla Beltre MD. <Lv Quintanilla - Last Filed: 03/04/18 22:50>
[2018-03-04 22:07] LABS: HEMATOCRIT 38.1 % (32.4-45.2); HEMOGLOBIN 12.7 GM/dL (10.7-15.3); MCH 26.4 pg (25.7-33.7); MCHC 33.2 g/dl (32.0-36.0); MEAN CELL VOLUME 79.5 fl (80-96); MEAN PLT VOLUME 8.6 fl (7.5-11.1); PLATELET COUNT 222 K/MM3 (134-434); RDW 14.7 % (11.6-15.6); WHITE BLOOD COUNT 7.3 K/mm3 (4.0-10.0)
[2018-03-04 22:18] LABS: INR 1.04 (0.83-1.09); PROTHROMBIN TIME (PATIENT) 11.8 SEC (9.7-13.0)
[2018-03-04 22:25] LABS: ANION GAP 10 MMOL/L (8-16); BLOOD UREA NITROGEN 8 mg/dL (7-18); CALCIUM 8.6 mg/dL (8.5-10.1); CHLORIDE 106 mmol/L (98-107); CO2 24 mmol/L (21-32); CREATININE 0.6 mg/dL (0.55-1.02); GLUCOSE,RANDOM 79 mg/dL (74-106); POTASSIUM 3.4 mmol/L (3.5-5.1); SODIUM 140 mmol/L (136-145)
--- NOTE | 2018-03-04 22:27 | PDOC ---
History of Present Illness <Karla Beltre - Last Filed: 03/04/18 23:18> - General History Source: Patient Exam Limitations: No Limitations - History of Present Illness Initial Comments: 03/04/18 22:21 Pt is a 27yo F with PMH of HIV on HAART and fatty liver presenting to ED with complaints of dizzziness. Pt said she was walking back from her boyfriend's house today around 3pm and when she started to eat she was feeling dizzy/ lightheaded. She went to take a nap but when she woke up, she was still dizzy. She feels as if the room is spinning. She admits to some chills, posterior neck pain. She denies loss of consciousness, head injury, fever, shortness of breath , chest pain, changes in vision, abdominal pain, N/V/D, dysuria, vaginal bleeding, recent illnesses. LMP was 2 weeks ago. Pt said while she was in the waiting room, she was told that she was having facial droop so they sent her to CT. She is asymptomatic at the time of interview PMH: see hpi PSH: deviated septum repair Meds: Genvoya, OCPs Allergies: nkda Social: 2 cigarettes/day, occasional marijuana use, denies alcohol use, illicit drug use <Elle Laguna - Last Filed: 03/04/18 23:25> - General Chief Complaint: Lightheaded Stated Complaint: DIZZINESS Time Seen by Provider: 03/04/18 20:50 Past History <Karla Beltre - Last Filed: 03/04/18 23:18> - Past Medical History COPD: No GI Disorders: Yes Liver Disease: Yes ("FATTY") - Immunization History Immunization Up to Date: Yes - Suicide/Smoking/Psychosocial Hx Smoking History: Current some day smoker Have you smoked in the past 12 months: Yes Number of Cigarettes Smoked Daily: 2 If you are a former smoker, when did you quit?: 1 year ago Information on smoking cessation initiated: No Hx Alcohol Use: No Drug/Substance Use Hx: No Substance Use Type: None <Elle Laguna - Last Filed: 03/04/18 23:25> - Past Medical History Allergies/Adverse Reactions: Allergies Allergy/AdvReac Type Severity Reaction Status Date / Time No Known Allergies Allergy Verified 03/04/18 20:54 Home Medications: Ambulatory Orders Emtricitabine/Tenofov Alafenam [Descovy 200-25 mg Tablet (Nf)] 1 each PO ASDIR 04/04/17 Iron/Calcium/E/Folic Acid/Mvit [Vitafol Caplet] 1 each PO ASDIR 04/04/17 Raltegravir [Isentress] 400 mg PO ASDIR 04/04/17 Lidocaine 5% Patch [Lidoderm Patch -] 1 patch TP DAILY #7 patch 12/31/17 Cephalexin Monohydrate [Keflex -] 500 mg PO BID #14 capsule 01/17/18 Meclizine HCl [Antivert -] 25 mg PO Q6H #30 tablet 03/04/18 *Physical Exam - Vital Signs Last Vital Signs Temp Pulse Resp BP Pulse Ox 99.1 F 74 18 131/102 100 03/04/18 20:50 03/04/18 20:50 03/04/18 20:50 03/04/18 20:50 03/04/18 20:50 <Karla Beltre - Last Filed: 03/04/18 23:18> - Vital Signs Last Vital Signs Temp Pulse Resp BP Pulse Ox 99.1 F 74 18 131/102 100 03/04/18 20:50 03/04/18 20:50 03/04/18 20:50 03/04/18 20:50 03/04/18 20:50 <Elle Laguna - Last Filed: 03/04/18 23:25> ED Treatment Course - LABORATORY CBC & Chemistry Diagram: 03/04/18 22:00 03/04/18 22:00 - ADDITIONAL ORDERS Additional order review: Laboratory Results 03/04/18 03/04/18 03/04/18 22:00 22:00 22:00 PT with INR 11.80 INR 1.04 Sodium 140 Potassium 3.4 L Chloride 106 Carbon Dioxide 24 Anion Gap 10 BUN 8 Creatinine 0.6 Creat Clearance w eGFR > 60 Random Glucose 79 Calcium 8.6 Creatine Kinase 196 H Troponin I < 0.02 03/04/18 22:00 RBC 4.80 MCV 79.5 L MCHC 33.2 RDW 14.7 MPV 8.6 - Medications Given in the ED: ED Medications Discontinued Medications Generic Name Dose Route Start Last Admin Trade Name Freq PRN Reason Stop Dose Admin Acetaminophen 1,000 mg 03/04/18 22:30 03/04/18 22:40 Ofirmev Injection - IVPB 03/04/18 22:31 1,000 mg ONCE ONE Administration <BeltreKarla - Last Filed: 03/04/18 23:18> - LABORATORY CBC & Chemistry Diagram: 03/04/18 22:00 03/04/18 22:00 - ADDITIONAL ORDERS Additional order review: Laboratory Results 03/04/18 22:00 PT with INR 11.80 INR 1.04 03/04/18 22:00 RBC 4.80 MCV 79.5 L MCHC 33.2 RDW 14.7 MPV 8.6 <Elle Laguna - Last Filed: 03/04/18 23:25> Medical Decision Making - Medical Decision Making 03/04/18 22:26 Pt is a 27yo F with PMH of HIV on HAART and fatty liver presenting to ED with complaints of dizzziness. CBC, CMP ordered. Will give liter of fluid. CT head negative for intracranial pathology. 03/04/18 23:24 Pt reported feeling better with fluids and tylenol. Does not feel dizzy. Pt hemodynamically stable. labs wnl. PT can be d/c home with pcp follow up. No concern for aa dissection due to age and resolution of symptoms with meds. <Elle Laguna - Last Filed: 03/04/18 23:25> *DC/Admit/Observation/Transfer - Discharge Dispostion Decision to Admit order: No <Karla Beltre - Last Filed: 03/04/18 23:18> <Elle Laguna - Last Filed: 03/04/18 23:25> Diagnosis at time of Disposition: Vertigo - Discharge Dispostion Disposition: HOME Condition at time of disposition: Improved - Prescriptions Prescriptions: Meclizine HCl [Antivert -] 25 mg PO Q6H #30 tablet - Referrals Referrals: Scottie Toscano MD [Primary Care Provider] - - Patient Instructions Printed Discharge Instructions: Vertigo (Alternative Therapy), Vertigo Additional Instructions: You were seen here today for dizziness. We did lab work and a CT of your head. Everything is normal. The most likely cause of your symptoms is vertigo. Please follow up with your PCP within the next week. Please come back to the ED if: your symptoms get worse, you lose consciousness, you start vomiting, develop fever or if any new concerning symptom develops. Thank you - Post Discharge Activity
[2018-03-04] MEDS ORDERED: SODIUM CHLORIDE 1,000 ML IV STA (22:30)
[2018-03-04] MEDS ORDERED: ACETAMINOPHEN 1000 MG/100 ML VIAL (NON FORMULARY) IVPB ONE (22:30)
[2018-03-04] MEDS ORDERED: MECLIZINE HCL 25 MG TABLET (FP) PO ONE ×2 (22:46→22:50)
[2018-03-04] MEDS ORDERED: POTASSIUM CHLORIDE TABS 20 MEQ TABLET.ER (FP) PO ONE ×2 (22:49→22:55)
[2018-03-04] MEDS ORDERED: MECLIZINE HCL 25 MG TABLET (FP) ONE (22:55)
--- NOTE | 2018-03-07 14:07 | EKG ---
Test Reason : Blood Pressure : / mmHG Vent. Rate : 074 BPM Atrial Rate : 074 BPM P-R Int : 184 ms QRS Dur : 084 ms QT Int : 404 ms P-R-T Axes : 047 026 024 degrees QTc Int : 448 ms NORMAL SINUS RHYTHM NORMAL ECG WHEN COMPARED WITH ECG OF 09-NOV-2016 13:00, NO SIGNIFICANT CHANGE WAS FOUND Confirmed by WILLY LANE MD ([id number]) on 03/07/2018 2:06:49 PM Referred By: Confirmed By:WILLY LANE MD
== END 2018-03-05 00:01 | disposition home or self-care (01) ==
LOC: JER 20:32
PROC: 3E033NZ Introduction of Analgesics, Hypnotics, Sedatives into Peripheral Vein, Percutaneous Approach (ICD-10-PCS; principal; 2018-03-04)
DX: R42 Dizziness and giddiness (principal); R03.0 Elevated blood-pressure reading, without diagnosis of hypertension; M06.9 Rheumatoid arthritis, unspecified; K76.0 Fatty (change of) liver, not elsewhere classified; Z21 Asymptomatic human immunodeficiency virus [HIV] infection status
CPT/HCPCS: 36415; 70450-TC; 80048; 82550; 82553; 84484; 85027; 85610; 93005; 93010; 96374; 99283-25; J0131; J7030

== ENCOUNTER 2019-08-27 12:24 | Emergency (ER) | payer OTHER ==
[2019-08-27 12:41] VITALS: BP 110/81; PULSE 91; TEMP 98.7; BMI 33.3
--- NOTE | 2019-08-27 13:19 | PDOC ---
History of Present Illness - General Chief Complaint: Respiratory Stated Complaint: CONGESTED Time Seen by Provider: 08/27/19 12:47 History Source: Patient Exam Limitations: Clinical Condition - History of Present Illness Initial Comments: 08/27/19 13:15 Patient with no significant past medical history present with complaint of 4- day history of persisting cough with yellow sputum, nasal congestion, sinus headache and runny nose. Denies fever, chills, body aches, nausea, vomiting, abdominal pain. Denies diarrhea or constipation. Patient has not taken anything for symptom. Patient feels she might have a sinus infection Is this a multiple visit Asthma Patient?: No Timing/Duration: other (4 days) Past History - Past Medical History Allergies/Adverse Reactions: Allergies Allergy/AdvReac Type Severity Reaction Status Date / Time No Known Allergies Allergy Verified 08/27/19 12:40 Home Medications: Ambulatory Orders Emtricitabine/Tenofov Alafenam [Descovy 200-25 mg Tablet (Nf)] 1 each PO ASDIR 04/04/17 Iron/Calcium/E/Folic Acid/Mvit [Vitafol Caplet] 1 each PO ASDIR 04/04/17 Raltegravir [Isentress] 400 mg PO ASDIR 04/04/17 Lidocaine 5% Patch [Lidoderm Patch -] 1 patch TP DAILY #7 patch 12/31/17 Cephalexin Monohydrate [Keflex -] 500 mg PO BID #14 capsule 01/17/18 Meclizine HCl [Antivert -] 25 mg PO Q6H #30 tablet 03/04/18 Azithromycin [Zithromax Tri-Gary (3 DAYS) -] 500 mg PO DAILY #3 tablet 08/27/19 Benzonatate [Tessalon Pearls -] 100 mg PO Q8H PRN #21 capsule 08/27/19 Ipratropium [place] 2 spray NS BID PRN 5 Days #1 spray 08/27/19 Montelukast Na [Singulair -] 10 mg PO HS #7 tablet 08/27/19 COPD: No GI Disorders: Yes Liver Disease: Yes ("FATTY") - Immunization History Immunization Up to Date: Yes - Psycho Social/Smoking Cessation Hx Smoking History: Never smoked Have you smoked in the past 12 months: Yes Number of Cigarettes Smoked Daily: 2 If you are a former smoker, when did you quit?: 1 year ago Hx Alcohol Use: No Drug/Substance Use Hx: No Substance Use Type: None Review of Systems - Review of Systems Able to Perform ROS?: Yes Is the patient limited [place] proficient: No Constitutional: No: Chills, Fever, Malaise HEENTM: Yes: Symptoms Reported, See HPI, Nose Congestion. No: Eye Pain, Blurred Vision, Tearing, Recent change in vision, Double Vision, Cataracts, Ear Pain, Ocular Prothesis, Ear Discharge, Nose Pain, Tinnitus, Nose Bleeding, Hearing Loss, Throat Pain, Throat Swelling, Mouth Pain, Dental Problems, Difficulty Swallowing, Mouth Swelling, Other Respiratory: Yes: Symptoms reported, See HPI, Cough, Productive cough. No: Orthopnea, Shortness of Breath, SOB with Exertion, SOB at Rest, Stridor, Wheezing, Hemoptysis, Other Cardiac (ROS): No: Symptoms Reported, See HPI, Chest Pain, Edema, Irregular Heart Rate, Lightheadedness, Palpitations, Syncope, Chest Tightness, Other ABD/GI: No: Symptoms Reported, See HPI, Blood Streaked Bowels, Constipated, Diarrhea, Nausea, Poor Appetite, Vomiting, Indigestion, Abdominal cramping Musculoskeletal: No: Symptoms Reported All Other Systems: Reviewed and Negative *Physical Exam - Vital Signs Last Vital Signs Temp Pulse Resp BP Pulse Ox 98.7 F 91 H 18 110/81 99 08/27/19 12:38 08/27/19 12:38 08/27/19 12:38 08/27/19 12:38 08/27/19 12:38 - Physical Exam 08/27/19 13:17 GENERAL: Well developed, well nourished. Awake and alert. No acute distress. HEENT: Normocephalic, atraumatic. PERRLA, EOMI. No conjunctival pallor. Sclera are non-icteric. Moist mucous membranes. Oropharynx is clear. NECK: Supple. Full ROM. CARDIOVASCULAR: Regular rate and rhythm. No murmurs, rubs, or gallops. Distal pulses are 2+ and symmetric. PULMONARY: No evidence of respiratory distress. Lungs clear to auscultation bilaterally. No wheezing, rales or rhonchi. ABDOMINAL: Soft. Non-tender. Non-distended. No rebound or guarding. No organomegaly. Normoactive bowel sounds. MUSCULOSKELETAL Normal range of motion at all joints. SKIN: Warm and dry. Normal capillary refill. No rashes. No jaundice. NEUROLOGICAL: Alert, awake, appropriate. Gait is normal without ataxia. PSYCHIATRIC: Cooperative. Good eye contact. Appropriate mood General Appearance: Yes: Nourished, Appropriately Dressed. No: Apparent Distress Medical Decision Making - Medical Decision Making 08/27/19 13:15 Patient with no significant past medical history present with complaint of 4- day history of persisting cough with yellow sputum, nasal congestion, sinus headache and runny nose. Denies fever, chills, body aches, nausea, vomiting, abdominal pain. Denies diarrhea or constipation. Patient has not taken anything for symptom. Patient feels she might have a sinus infection Exam significant for bilateral nasal congestion with mild maxillary sinus tenderness otherwise unremarkable exam .lungs clear to auscultation bilateral. Normal cardio exam and patient afebrile. Patient symptoms likely viral URI with sinusitis. Patient stable for discharge on Atrovent nasal spray and Singulair for nasal congestion and Tessalon Perles for cough with advised to increase fluid intake with PCP follow-up Discharge - Discharge Information Problems reviewed: Yes Clinical Impression/Diagnosis: URI with cough and congestion Sinusitis Qualifiers: Sinusitis location: maxillary Chronicity: acute Recurrence: non-recurrent Qualified Code(s): J01.00 - Acute maxillary sinusitis, unspecified Condition: Stable Disposition: HOME - Admission No - Additional Discharge Information Prescriptions: Azithromycin [Zithromax Tri-Gary (3 DAYS) -] 500 mg PO DAILY #3 tablet Benzonatate [Tessalon Pearls -] 100 mg PO Q8H PRN #21 capsule PRN Reason: Cough Ipratropium [place] 2 spray NS BID PRN 5 Days #1 spray PRN Reason: nasal congestion Montelukast Na [Singulair -] 10 mg PO HS #7 tablet - Follow up/Referral Referrals: Arianna Toscano [Primary Care Provider] - - Patient Discharge Instructions Patient Printed Discharge Instructions: DI for Sinusitis Additional Instructions: Take prescribed medication as prescribed for symptoms. Increase fluid intake. Follow-up with primary care - Post Discharge Activity
== END 2019-08-27 13:40 | disposition home or self-care (01) ==
LOC: JERFT 12:24
DX: J01.00 Acute maxillary sinusitis, unspecified (principal); J06.9 Acute upper respiratory infection, unspecified
CPT/HCPCS: 99283-25

== ENCOUNTER 2022-04-21 18:07 | Emergency (ER) | payer OTHER ==
[2022-04-21 18:14] VITALS: BP 112/64; PULSE 88; RESP 18; TEMP 98.7; BMI 26.7
[2022-04-21] MEDS ORDERED: ONDANSETRON 4 MG/2 ML VIAL IVPUSH ONE (18:54)
[2022-04-21] MEDS ORDERED: SODIUM CHLORIDE 0.9% 500 ML INFUS.BAG IV ONE (18:54)
[2022-04-21] MEDS ORDERED: ONDANSETRON 4 MG/2 ML VIAL ONE (19:17)
[2022-04-21 20:26] LABS: BASO % 0.1 % (0-2.0); EOS % 0.4 % (0-4.5); HEMATOCRIT 38.7 % (32.4-45.2); HEMOGLOBIN 13.2 GM/dL (10.7-15.3); LYMPH % 21.3 % (8-40); MCH 29.4 pg (25.7-33.7); MCHC 34.2 g/dl (32.0-36.0); MEAN CELL VOLUME 86.1 fl (80-96); MEAN PLT VOLUME 9.3 fl (7.5-11.1); MONO % 4.1 % (3.8-10.2); NEUT % 74.1 % (42.8-82.8); PLATELET COUNT 221 10^3/uL (134-434); RBC 4.49 M/mm3 (3.60-5.2); RDW 13.9 % (11.6-15.6); WHITE BLOOD COUNT 9.2 K/mm3 (4.0-10.0)
[2022-04-21 20:36] LABS: EPI CELLS 20 /uL (0-25.1); HYALINE CASTS 3 /uL (0-3.1); URINE APPEARANCE CLEAR; URINE BACTERIA 329 /uL (0-1359); URINE BILIRUBIN NEGATIVE (NEGATIVE); URINE COLOR DK YELLOW; URINE GLUCOSE (UA) NEGATIVE (NEGATIVE); URINE KETONE 3+ (NEGATIVE); URINE LEUK ESTERASE NEGATIVE (NEGATIVE); URINE NITRITE NEGATIVE (NEGATIVE); URINE PROTEIN 1+ (NEGATIVE); URINE RBC 12 /uL (0-23.9); URINE WBC 30 /uL (0-25.8)
[2022-04-21 20:37] LABS: HCG,QUALITATIVE URINE Positive
[2022-04-21 21:17] LABS: CALCIUM 8.9 mg/dL (8.5-10.1)
[2022-04-21 21:18] LABS: ALBUMIN 4.4 g/dl (3.4-5.0); MAGNESIUM 2.2 mg/dL (1.8-2.4)
[2022-04-21 21:21] LABS: CREATININE 0.6 mg/dL (0.55-1.3); PHOSPHOROUS 3.3 mg/dL (2.5-4.9)
[2022-04-21 21:22] LABS: BILIRUBIN,TOTAL 0.6 mg/dL (0.2-1); TOT PROT 7.2 g/dl (6.4-8.2)
[2022-04-21] MEDS ORDERED: POTASSIUM CHLORIDE ORAL LIQUID 20 MEQ/15 ML PO ONE (21:27)
[2022-04-21] MEDS ORDERED: DEXTROSE 5%-NORMAL SALINE 1,000 ML IV ONE (21:28)
[2022-04-21] MEDS ORDERED: POTASSIUM CHLORIDE ORAL LIQUID 20 MEQ/15 ML ONE (21:32)
== END 2022-04-21 22:27 | disposition home or self-care (01) ==
LOC: JER 18:07
PROC: 3E033GC Introduction of Other Therapeutic Substance into Peripheral Vein, Percutaneous Approach (ICD-10-PCS; principal; 2022-04-21)
DX: O21.9 Vomiting of pregnancy, unspecified (principal); Z3A.08 8 weeks gestation of pregnancy
CPT/HCPCS: 36415; 80053; 81003; 83735; 84100; 84703; 85025; 87086; 93005; 93010; 99284-25